=== PATIENT | male | born 1960 | race Caucasian/White ===

== ENCOUNTER 2018-03-12 13:03 | Observation (INO) | payer MEDICAID, OTHER ==
--- OUTSIDE RECORDS SUMMARY | 2018-03-12 13:18 | XMS REPORT ---
:1960 External Reference #:[id number] Author Organization [facility] Address [address] [place] [address] Phone [phone] Care Team Providers Name Role Phone Mika Dawson MD Care Team Information Director Of Nursing Unavailable Mika Dawson MD Primary Care Physician Unavailable Payers Type Date Identification Numbers Payment Provider Subscriber Medicaid Effective: Policy Number: [id number] Medicaid [place] Francisco Moreno 2018 PayID: [id number] [address] [place] [address] Problems Description No Information Family History Date Family Member(s) Problem(s) Comments Mother due to Lung Cancer () First Sister due to Lung Cancer () Social History Type Date Description Comments Smoking Heavy tobacco smoker (more than 10 cigarettes/day) Allergies, Adverse Reactions, Alerts Date Description Reaction Status Severity Comments 02/20/2018 NKDA active Medications Medication Date Status Form Strength Qnty SIG Indications Ordering Provider No Active 02/20/2018 Active Unknown Medications Vital Signs Date Vital Result Comment 02/20/2018 BP Systolic 124 mmHg BP Diastolic 88 mmHg Heart Rate 74 /min Body Temperature 99.0 F Respiratory Rate 18 /min Height 70 inches 5'10" Weight 143.00 lb BMI (Body Mass Index) 20.5 kg/m2 Results Description No Information Procedures Description No Information Plan of Care 02/20/2018 - Mika Dawson MDZ00.00 Encntr for general adult medical exam w/o abnormal findingsNew Labs:SagafdnlvP65.0 Bilateral primary osteoarthritis of hipAllNew Medication:No Active MedicationsComments:~B_~U_ Medication Management~b_~u_ Patient Understands medications he's taking? Yes No Are there Barriers to Adherence? Yes No Has the patient been asked about herbal supplements and therapies, and OTC meds? Yes No
[2018-03-12] MEDS ORDERED: Thiamine IV 100 MG, Folic Acid IV* 1 MG, Multiple Vitamin IV ADULT* 10 ML in NS 0.9% 10... IV ONE (13:29)
[2018-03-12] MEDS ORDERED: LORazepam INJ* 2 MG/ML 1 ML VIAL IV ONE (13:29)
[2018-03-12] MEDS ORDERED: NS 0.9% 1000 ML* 1,000 ML IV ONE (13:29)
[2018-03-12 14:03] LABS: ABS Basophils 0 10^3/ul (0-0.2); ABS Eosinophils 0.1 10^3/ul (0-0.6); ABS Lymphocytes 1.2 10^3/ul (1.0-4.8); ABS Monocytes 0.6 10^3/ul (0-0.8); ABS Neutrophils 2.6 10^3/ul (1.5-7.7); ABS Nucleated RBC 0 10^3/ul; Eosinophil % 1.2 % (0-6); Hematocrit 46 % (42-52); Hemoglobin 16.3 g/dl (14.0-18.0); Lymphocyte % 26.5 % (25-47); Mean Corpuscular HGB Conc 35 g/dl (31-36); Mean Corpuscular Hemoglobin 34 pg (27-31); Mean Corpuscular Volume 96 fL (80-94); Mean Platelet Volume 7.9 um3 (7.4-10.4); Nucleated Red Blood Cells % 0.2; Platelet Count 132 10^3/ul (150-450); Red Blood Count 4.83 10^6/ul (4.00-5.40); Red Cell Distribution Width 13 % (10.5-15); White Blood Count 4.4 10^3/ul (3.5-10.8)
[2018-03-12 14:24] LABS: EGFR Non-African American 105.3 (>60)
--- NOTE | 2018-03-12 15:19 | ED ---
Substance Abuse/Use - HPI Summary HPI Summary: The pt is a 57 y/o male presenting [facility] the [facility] c/o nausea and vomiting for the last 1 week. He notes tremors but denies a seizure or CP. He consumes 6 bottles of beer daily and the last time he did that was yesterday night. He has a PMHx of COPD and RA. This is scribe Antoinette Mills documenting for attending Dr. Dennis MD. - History Of Current Complaint Chief Complaint: EDGeneral Stated Complaint: VOMITING Time Seen by Provider: 03/12/18 13:25 Hx Obtained From: Patient, Family/Seaming Inspector Onset/Duration of Drug/ETOH Abuse: Weeks - 1 week Ingestion History: Type/Name Of Drug - 6 bottles of beer, Approximate Time Of Ingestion - 1 night ago Timing Of Abuse: Daily Character: Anxious Associated Signs And Symptoms: Negative - Seizures, Tremulous, Nausea, Vomiting - Allergies/Home Medications Allergies/Adverse Reactions: Allergies Allergy/AdvReac Type Severity Reaction Status Date / Time No Known Allergies Allergy Verified 03/12/18 13:13 Home Medications: Home Medications NK [No Home Medications Reported] 03/12/18 [History Confirmed 03/12/18] PMH/Surg Hx/FS Hx/Imm Hx Respiratory History: Reports: Hx Chronic Obstructive Pulmonary Disease (COPD), Other Respiratory Problems/Disorders Musculoskeletal History: Reports: Hx Rheumatoid Arthritis - Surgical History Surgery Procedure, Year, and Place: hernia repair/ Infectious Disease History: No Infectious Disease History: Denies: Traveled Outside the [place] in Last 30 Days - Family History Known Family History: Positive: Other - [place] - Social History Occupation: Employed Full-time Lives: With Family Alcohol Use: Daily Alcohol Amount: 6 bottles of beer a day Substance Use Type: Reports: None Substance Use Comment - Amount & Last Used: says he quit a week ago Hx Tobacco Use: Yes Smoking Status (MU): Heavy Every Day Tobacco Smoker Review of Systems Negative: Chest Pain Positive: Vomiting, Nausea Neurological: Negative - Seizure, Other - Positive: Tremors All Other Systems Reviewed And Are Negative: Yes Physical Exam - Summary Physical Exam Summary: VITAL SIGNS: Reviewed. GENERAL: Patient is a well-developed and nourished, anxious male who is sitting up in the stretcher. Patient is not in any acute respiratory distress. HEAD AND FACE: No signs of trauma. No ecchymosis, hematomas or skull depressions. No sinus tenderness. EYES: PERRLA, EOMI x 2, No injected conjunctiva, no nystagmus. EARS: Hearing grossly intact. Ear canals and tympanic membranes are within normal limits. MOUTH: Oropharynx within normal limits. NECK: Supple, trachea is midline, no adenopathy, no JVD, no carotid bruit, no c- spine tenderness, neck with full ROM. CHEST: Symmetric, no tenderness at palpation LUNGS: Clear to auscultation bilaterally. No wheezing or crackles. CVS: Regular rate and rhythm, S1 and S2 present, no murmurs or gallops appreciated. ABDOMEN: Soft, non-tender. No signs of distention. No rebound no guarding, and no masses palpated. Bowel sounds are normal. EXTREMITIES: FROM in all major joints, no edema, no cyanosis or clubbing. NEURO: Alert and oriented x 3. No acute neurological deficits. Speech is normal and follows commands. SKIN: Dry and warm Triage Information Reviewed: Yes Vital Signs On Initial Exam: Initial Vitals Temp Pulse Resp BP Pulse Ox 99 F 107 18 150/106 96 03/12/18 13:10 03/12/18 13:10 03/12/18 13:10 03/12/18 13:10 03/12/18 13:10 Vital Signs Reviewed: Yes Diagnostics - Vital Signs Vital Signs Temp Pulse Resp BP Pulse Ox 03/12/18 15:00 20 03/12/18 14:41 17 137/110 03/12/18 14:10 85 16 152/99 98 03/12/18 14:00 100 20 98 03/12/18 13:41 19 146/101 03/12/18 13:38 18 03/12/18 13:12 108 23 145/114 96 03/12/18 13:10 99 F 107 19 150/106 96 - Laboratory Lab Results: Lab Results 03/12/18 03/12/18 Range/Units 13:45 13:45 WBC 4.4 (3.5-10.8) 10^3/ul RBC 4.83 (4.00-5.40) 10^6/ul Hgb 16.3 (14.0-18.0) g/dl Hct 46 (42-52) % MCV 96 H (80-94) fL MCH 34 H (27-31) pg MCHC 35 (31-36) g/dl RDW 13 (10.5-15) % Plt Count 132 L (150-450) 10^3/ul MPV 7.9 (7.4-10.4) um3 Neut % (Auto) 58.7 (38-83) % Lymph % (Auto) 26.5 (25-47) % [place] % (Auto) 12.6 H (0-7) % Eos % (Auto) 1.2 (0-6) % Baso % (Auto) 1.0 (0-2) % Absolute Neuts (auto) 2.6 (1.5-7.7) 10^3/ul Absolute Lymphs (auto) 1.2 (1.0-4.8) 10^3/ul Absolute Monos (auto) 0.6 (0-0.8) 10^3/ul Absolute Eos (auto) 0.1 (0-0.6) 10^3/ul Absolute Basos (auto) 0 (0-0.2) 10^3/ul Absolute Nucleated RBC 0 10^3/ul Nucleated RBC % 0.2 Sodium 138 (135-145) mmol/L Potassium 4.5 (3.5-5.0) mmol/L Chloride 101 (101-111) mmol/L Carbon Dioxide 24 (22-32) mmol/L Anion Gap 13 H (2-11) mmol/L BUN 8 (6-24) mg/dL Creatinine 0.76 (0.67-1.17) mg/dL Est GFR ( Amer) 127.5 (>60) Est GFR (Non-Af Amer) 105.3 (>60) BUN/Creatinine Ratio 10.5 (8-20) Glucose 90 (70-100) mg/dL Calcium 9.4 (8.6-10.3) mg/dL Total Bilirubin 1.60 H (0.2-1.0) mg/dL AST 301 H (13-39) U/L ALT 189 H (7-52) U/L Alkaline Phosphatase 114 H (34-104) U/L Total Protein 7.5 (6.4-8.9) g/dL Albumin 4.4 (3.2-5.2) g/dL Globulin 3.1 (2-4) g/dL Albumin/Globulin Ratio 1.4 (1-3) TSH 2.37 (0.34-5.60) mcIU/mL Salicylates < 2.50 (<30) mg/dL Acetaminophen < 15 mcg/mL Serum Alcohol 121 H (<10) mg/dL Result Diagrams: 03/13/18 07:20 03/13/18 07:20 Lab Statement: Any lab studies that have been ordered have been reviewed, and results considered in the medical decision making process. Course/Dx - Course Assessment/Plan: This patient is a 49-year-old male who presents to the emergency department with a chief complaint of having anxiety, tremors, not feeling well. The patient reports that he is an alcoholic and he usually drinks about six pack every night. During the physical exam the patient is anxious, tachycardic and hypertensive. I placed the patient in a quality assurance monitor body, the ordered IV access, IV fluids, banana bag and Ativan. Blood test results without any significant abnormality except for increase AST and ALTs as well as total bilirubin. Alcohol level is 121. It seems that the patient is having alcohol withdrawal because now the patient is having palpitations tachycardia the patient is diaphoretic and his with a lot of tremors. Therefore I gave her another dose of Ativan and the patients symptoms are improving. I discussed the case with Dr. Webster from the hospitalist services for accepted the patient for admission. The patient is hemodynamically stable alert and oriented 3. - Diagnoses Provider Diagnoses: Alcohol withdrawal - Physician Notifications Discussed Care Of Patient With: Ayad Webster - Hospitalist Time Discussed With Above Provider: 18:15 Instructed by Provider To: Admit As Inpatient - Dr. Webster agreed to admit the pt. Discharge - Sign-Out/Discharge Documenting (check all that apply): Patient Departure - Discharge Plan Condition: Stable Disposition: ADMITTED TO [facility] - Billing Disposition and Condition Condition: STABLE Disposition: Admitted to [facility] Attestation Statement Scribe Attestation: This is dami Mills documenting for attending Dr. Dennis MD. User Type: Provider with Scribe Provider Attestation: The documentation recorded by the scribe accurately reflects the service I personally performed and the decisions made by me.
[2018-03-12 17:28] LABS: Urine Appearance Clear; Urine Blood Negative (Negative); Urine Color Yellow; Urine Ketones Negative (Negative); Urine Protein Negative (Negative); Urine Specific Gravity 1.014 (1.010-1.030); Urine Urobilinogen Negative (Negative)
[2018-03-12] MEDS ORDERED: Ondansetron INJ* 2 MG/ML VIAL IV ONE (18:08)
[2018-03-12] MEDS ORDERED: LORazepam INJ* 2 MG/ML 1 ML VIAL IV PUSH ONE (18:28)
[2018-03-12] MEDS ORDERED: Acetaminophen TAB* 325 MG PO PRN (18:48)
[2018-03-12] MEDS ORDERED: Ondansetron INJ* 2 MG/ML VIAL IV PRN (18:48)
[2018-03-12] MEDS ORDERED: Albuterol 2.5 MG/3 ML NEB.SOL* (0.083%) INH PRN (18:54)
[2018-03-12] MEDS ORDERED: LORazepam INJ* 2 MG/ML 1 ML VIAL IV PUSH SCH (19:00)
[2018-03-12 19:03] LABS: INR 0.75 (0.77-1.02)
--- NOTE | 2018-03-12 19:46 | RAD ---
Indication: Alcohol abuse. Elevated LFTs. Comparison: No relevant prior exams available on the [facility] PACS for comparison. Technique: RIGHT upper quadrant ultrasound. Report: Appropriate direction flow documented in the portal and hepatic veins. 17.3 cm liver is increased in echogenicity. Negative for focal hepatic lesions. Negative for intrahepatic biliary dilatation. 3.7 mm common bile duct. Incompletely distended gallbladder likely accounts for borderline prominence of the gallbladder wall measuring 3.4 mm. No visualized cholelithiasis or pericholecystic fluid. Negative for sonographic Bryson's sign. The pancreas is largely obscured due to bowel gas and fatty infiltration of the liver with the visualized pancreas unremarkable. No peripancreatic fluid evident. Negative for ascites. 10.8 cm RIGHT kidney is unremarkable. IMPRESSION: #. Hepatosteatosis. No conspicuous focal hepatic lesions evident. #. Incompletely distended gallbladder limiting assessment without gross abnormality. Negative for biliary dilatation. #. Limited conspicuity of the pancreas without gross abnormality. #. Negative for ascites.
--- NOTE | 2018-03-12 20:45 | HP ---
CC: Dr. Dawson * HISTORY AND PHYSICAL: DATE OF ADMISSION: 03/12/18 PRIMARY CARE PROVIDER: Dr. Dawson. ATTENDING PHYSICIAN WHILE IN THE HOSPITAL: Keith Peace MD * (report dictated by Ravinder Thomson NP) CHIEF COMPLAINT: 1. Tremors. 2. Sweating. 3. Dry heaves. HISTORY OF PRESENT ILLNESS: Mr. Moreno is a 57-year-old male patient. He has a history of COPD, not on any medications currently. He has a history of EtOH abuse. He has a history of tobacco abuse. He is presenting to our emergency department today stating that he was at work today and apparently he was having episodes of dry heaving, nausea, and vomiting. He was shaking. He was sweating. He states his last drink was last night around 8 o'clock and he states he just started having these increasing tremors. He has had a tremor, he said in the left hand. For the last few days, this is much worse. He states that he has not been vomiting up any blood or coughing out emesis. He does admit to having some epigastric discomfort, but he states that he was concerned because he could not keep anything down. The tremor was not getting any better. He came into the ED. It was noted that he was diaphoretic. He was tremulous. He was tachycardic. He was hypertensive. He was acutely withdrawing from alcohol. So, we were asked to evaluate for admission. PAST MEDICAL HISTORY: Significant for: 1. EtOH abuse. 2. Tobacco abuse. 3. COPD. PAST SURGICAL HISTORY: He has had hernia repair x2. HOME MEDICATIONS: He is denying taking any current medications. ALLERGIES TO MEDICATIONS: Include no known drug allergies. FAMILY HISTORY: Mother had a history of lung cancer. Father of a work- related accident. SOCIAL HISTORY: He admits to drinking at least a 6 pack a day. He does smoke about a pack a day. He does not wish to appoint a healthcare decision maker at this point. REVIEW OF SYSTEMS: There was no documented fever. He is denying having any significant weight change. There was no ear discharge. He is denying having any rhinorrhea. There is no sore throat. There is no thyroid enlargement. Again, he denied having any chest pain. There was no orthopnea. No nocturnal dyspnea. There is epigastric discomfort. There is dry heaves and vomiting. No dysuria, no frequency. No seizure, no loss of consciousness. No pruritus and no skin ulcerations. Review of 14 systems was completed, all others negative. PHYSICAL EXAMINATION GENERAL: At this time, Mr. Moreno is a 57-year-old male patient. He is sitting in the ED stretcher. He is chronically ill appearing. He appears to be older than stated age. He is cachectic and he is tremulous. VITAL SIGNS: Blood pressure 158/100; pulse 109; respirations 20; O2 saturations , he is on 2 L, 98%; temperature 99. HEENT: Head: Atraumatic and normocephalic. Eyes: EOMs are intact. Sclerae anicteric and not pale. Throat: Oral mucosa appears to be dry. No oropharyngeal erythema. NECK: Supple. LUNGS: Clear to auscultation. No wheezes, rales, or rhonchi. HEART: Sounds S1, S2. It is tachycardic. ABDOMEN: Soft. It was flat, nontender. Bowel sounds present. EXTREMITIES: Pulses were 2+ throughout. He is moving all 4 extremities with 5/ 5 strength. He is tremulous. NEUROLOGICAL: He is awake. He is alert. He is oriented x3. His speech was clear. There is obvious tremor noted to his upper extremities and lower extremities. He had no facial drooping. He had no gross focal deficits. SKIN: Intact. DIAGNOSTIC STUDIES/LAB DATA: Labs today, WBC of 4.4, RBC of 4.83, hemoglobin 16.3, hematocrit 46, platelet count 132,000. Sodium is 138, potassium of 4.5, chloride of 101, bicarb was 24, BUN 8, creatinine of 0.76, glucose 90. Calcium 9.4. Total bili 1.6, AST was 301, ALT 189, alk phos 114. TSH of 2.37. Urine obtained negative. Toxicology was positive for cannabis and alcohol level was 121. Old medical records were reviewed. ASSESSMENT AND PLAN: Mr. Moreno is a 57-year-old male patient with a significant history for alcoholism and tobacco abuse coming in to the ED today with complaints of nausea and vomiting for the last week, noted tremors. He presented to the ED. He was noted to be tremulous, diaphoretic, tachycardic, hypertensive. There was concern for withdrawal. We were asked to evaluate for admission. He will be admitted under inpatient status for: 1. Ethanol abuse, now complicated by withdrawal. At this point, the patient will be started on an Ativan taper. He will also be put on a WAM protocol. He has received a banana bag here in the ED. He will continue thiamine and will continue folic acid. We will also order social work evaluation. I have put him on a PPI given the epigastric pain. This is probably from alcoholic gastritis and we will continue to follow him closely. 2. Alcoholic hepatitis. He has mild alcoholic hepatitis. His LFTs are a little elevated. His bili is up. I do not have his INRs to help me evaluate his synthetic function. His platelets were a little low. He is macrocytic. I will check an ultrasound of the liver and will follow his LFTs. Should they continue to elevate, consider getting GI involved. 3. Chronic obstructive pulmonary disease. I have ordered p.r.n. albuterol. 4. DVT prophylaxis. Heparin subcu has been ordered. 5. Code status. Full code. 6. Fluids, electrolytes, and nutrition. He can have a regular diet. TIME SPENT: On the admission was approximately 60 minutes, greater than half the time was spent [id number] with the patient obtaining my history and physical; other half time was spent going over the plan of care with the patient and implementing plan of care. I did discuss the plan of care with my attending, Dr. Peace; he is in agreement. RAVINDER THOMSON NP [id number]/[facility] #: [id number] JAZMYN
[2018-03-12] MEDS: LORazepam INJ* 2 MG/ML 1 ML VIAL IV SCH (21:20)
[2018-03-12] MEDS: Nicotine PATCH 21 MG/24 HR* PATCH TRANSDERM SCH (21:20)
[2018-03-12] MEDS: Nicotine Patch Removal NOTE FOLLOW UP SCH (21:22)
[2018-03-12] MEDS: Heparin VIAL(*) 5000 UNITS/ML VIAL (FIVE THOUSAND) SUBCUT SCH (21:22)
[2018-03-13] MEDS: LORazepam INJ* 2 MG/ML 1 ML VIAL IV SCH (03:01)
[2018-03-13] MEDS: Heparin VIAL(*) 5000 UNITS/ML VIAL (FIVE THOUSAND) SUBCUT SCH ×3 (05:13→21:57)
[2018-03-13] MEDS: Omeprazole CAP* 20 MG PO SCH (05:17)
[2018-03-13] MEDS: NS 0.9% 1000 ML* 1,000 ML IV SCH ×2 (05:17→13:32)
[2018-03-13] MEDS: Thiamine TAB* 100 MG TAB PO SCH (07:35)
[2018-03-13] MEDS: Folic Acid TAB* 1 MG PO SCH (07:35)
[2018-03-13] MEDS: Multivitamins/Minerals TAB PO SCH (07:35)
[2018-03-13 08:01] LABS: Hematocrit 41 % (42-52); Hemoglobin 14.3 g/dl (14.0-18.0); Mean Corpuscular HGB Conc 35 g/dl (31-36); Mean Corpuscular Hemoglobin 34 pg (27-31); Mean Corpuscular Volume 97 fL (80-94); Red Blood Count 4.26 10^6/ul (4.00-5.40); Red Cell Distribution Width 13 % (10.5-15)
[2018-03-13 08:08] LABS: EGFR Non-African American 135.8 (>60)
[2018-03-13 08:36] LABS: ABS Basophils 0 10^3/ul (0-0.2); ABS Eosinophils 0.1 10^3/ul (0-0.6); ABS Lymphocytes 1.1 10^3/ul (1.0-4.8); ABS Monocytes 0.4 10^3/ul (0-0.8); ABS Neutrophils 1.4 10^3/ul (1.5-7.7); ABS Nucleated RBC 0 10^3/ul; Eosinophil % 4.2 % (0-6); Lymphocyte % 36.6 % (25-47); Mean Platelet Volume 8.5 um3 (7.4-10.4); Nucleated Red Blood Cells % 0.1; Platelet Count 91 10^3/ul (150-450)
[2018-03-13] MEDS: Nicotine PATCH 21 MG/24 HR* PATCH TRANSDERM SCH (08:57)
[2018-03-13] MEDS ORDERED: LORazepam INJ* 2 MG/ML 1 ML VIAL IV PUSH SCH (10:00)
[2018-03-13 10:01] LABS: INR 0.79 (0.77-1.02)
--- NOTE | 2018-03-13 14:52 | PN ---
Subjective Date of Service: 03/13/18 Interval History: Pt seen and examined. Meds and labs reviewed. CC: ETOH WD ROS: Denied PRIEST/dizziness, F/C, N/V, CP, SOB, increased cough, sputum production , abd pain, diarrhea, constipation, dysuria, myalgias, arthralgias, throat pain , and new skin lesions. The rest of the 14 point ROS are unremarkable. PHYSICAL EXAM: GEN APPEARANCE: Awake, not in acute distress HEENT: NC/AT, PERRLA, moist oral mucosa, (-) throat erythema NECK: Soft, supple, (-) cervical LAD, (-)JVD HEART: S1S2 WNL, RRR, No MRG CHEST: CTA, BL, GAE, No W/R/R ABD: Soft, ND/NT, NABS 4x Q EXT: No C/C/E, mild upper extremity tremors while eating breakfast SKIN: Warm to touch PSYCH: No active psychosis, hallucinations, depression, SI/HI Objective Active Medications: Acetaminophen (Tylenol Tab*) 650 mg PO Q4H PRN PRN Reason: PAIN Albuterol (Ventolin 2.5 Mg/3 Ml Neb.Ada*) 2.5 mg INH Q2H PRN PRN Reason: SOB/WHEEZING Folic Acid (Folvite Tab*) 1 mg PO DAILY [facility] Last Admin: 03/13/18 07:35 Dose: Not Given Heparin Sodium (Porcine) (Heparin Vial(*)) 5,000 units SUBCUT Q8HR [facility] Last Admin: 03/13/18 13:32 Dose: 5,000 units Sodium Chloride (Ns 0.9% 1000 Ml*) 1,000 mls @ 125 mls/hr IV PER RATE [facility] Last Admin: 03/13/18 13:32 Dose: 125 mls/hr Lorazepam (Ativan Inj*) 0 - 3 mg IV PUSH .PER [facility] PROTOCOL [facility]; Protocol Multivitamins/Minerals (Theragran/Minerals Tab*) 1 tab PO DAILY [facility] Last Admin: 03/13/18 07:35 Dose: Not Given Nicotine (Nicotine Patch 21 Mg/24 Hr*) 1 patch TRANSDERM DAILY [facility] Last Admin: 03/13/18 08:57 Dose: 1 patch Omeprazole (Prilosec Cap*) 20 mg PO 0600 [facility] Last Admin: 03/13/18 05:17 Dose: Not Given Ondansetron HCl (Zofran Inj*) 4 mg IV Q6H PRN PRN Reason: NAUSEA Pharmacy Profile Note (Nicotine Patch Removal Note*) 1 note FOLLOW UP 2100 [facility] Last Admin: 03/12/18 21:22 Dose: Not Given Thiamine HCl (Vitamin B-1 Tab*) 100 mg PO DAILY [facility] Last Admin: 03/13/18 07:35 Dose: Not Given Vital Signs - 8 hr 03/13/18 03/13/18 03/13/18 07:00 07:36 09:50 Temperature 98.4 F 98.5 F Pulse Rate 76 73 Respiratory 18 20 18 Rate Blood Pressure 145/90 140/92 (mmHg) O2 Sat by Pulse 97 98 Oximetry 03/13/18 03/13/18 03/13/18 10:59 11:00 13:20 Temperature 99.1 F 98.2 F Pulse Rate 71 73 Respiratory 18 16 20 Rate Blood Pressure 145/92 137/88 (mmHg) O2 Sat by Pulse 98 98 Oximetry Oxygen Devices in Use Now: Nasal Cannula Result Diagrams: 03/13/18 07:20 03/13/18 07:20 Additional Lab and Data: Lab Results 03/12/18 03/12/18 Range/Units 13:45 13:45 WBC 4.4 (3.5-10.8) 10^3/ul RBC 4.83 (4.00-5.40) 10^6/ul Hgb 16.3 (14.0-18.0) g/dl Hct 46 (42-52) % MCV 96 H (80-94) fL MCH 34 H (27-31) pg MCHC 35 (31-36) g/dl RDW 13 (10.5-15) % Plt Count 132 L (150-450) 10^3/ul MPV 7.9 (7.4-10.4) um3 Neut % (Auto) 58.7 (38-83) % Lymph % (Auto) 26.5 (25-47) % [place] % (Auto) 12.6 H (0-7) % Eos % (Auto) 1.2 (0-6) % Baso % (Auto) 1.0 (0-2) % Absolute Neuts (auto) 2.6 (1.5-7.7) 10^3/ul Absolute Lymphs (auto) 1.2 (1.0-4.8) 10^3/ul Absolute Monos (auto) 0.6 (0-0.8) 10^3/ul Absolute Eos (auto) 0.1 (0-0.6) 10^3/ul Absolute Basos (auto) 0 (0-0.2) 10^3/ul Absolute Nucleated RBC 0 10^3/ul Nucleated RBC % 0.2 Sodium 138 (135-145) mmol/L Potassium 4.5 (3.5-5.0) mmol/L Chloride 101 (101-111) mmol/L Carbon Dioxide 24 (22-32) mmol/L Anion Gap 13 H (2-11) mmol/L BUN 8 (6-24) mg/dL Creatinine 0.76 (0.67-1.17) mg/dL Est GFR ( Amer) 127.5 (>60) Est GFR (Non-Af Amer) 105.3 (>60) BUN/Creatinine Ratio 10.5 (8-20) Glucose 90 (70-100) mg/dL Calcium 9.4 (8.6-10.3) mg/dL Total Bilirubin 1.60 H (0.2-1.0) mg/dL AST 301 H (13-39) U/L ALT 189 H (7-52) U/L Alkaline Phosphatase 114 H (34-104) U/L Total Protein 7.5 (6.4-8.9) g/dL Albumin 4.4 (3.2-5.2) g/dL Globulin 3.1 (2-4) g/dL Albumin/Globulin Ratio 1.4 (1-3) TSH 2.37 (0.34-5.60) mcIU/mL Salicylates < 2.50 (<30) mg/dL Acetaminophen < 15 mcg/mL Serum Alcohol 121 H (<10) mg/dL Assess/Plan/Problems-Billing Assessment: - Patient Problems (1) Alcohol withdrawal Current Visit: Yes Status: Acute Code(s): F10.239 - ALCOHOL DEPENDENCE WITH WITHDRAWAL, UNSPECIFIED SNOMED Code(s): 909012593 Comment: #Alcohol abuse and withdrawal: -Will D/C tapering dose of scheduled BZD and will only give pending WAM scores; RN mentioned has not needed PRN BZDs since admission -Advised life-style modifications -Continue Thiamine (2) Alcoholic hepatitis Current Visit: Yes Status: Acute Code(s): K70.10 - ALCOHOLIC HEPATITIS WITHOUT ASCITES SNOMED Code(s): 277414851 Comment: -Improving LFTs except for total bilirubin likely due to longer half life -Continue to encourage PO intake (3) COPD (chronic obstructive pulmonary disease) Current Visit: Yes Status: Acute Code(s): J44.9 - CHRONIC OBSTRUCTIVE PULMONARY DISEASE, UNSPECIFIED SNOMED Code(s): 79001218 Comment: -Not in acute exacerbation -Continue PRN Albuterol (4) GERD (gastroesophageal reflux disease) Current Visit: Yes Status: Acute Code(s): K21.9 - GASTRO-ESOPHAGEAL REFLUX DISEASE WITHOUT ESOPHAGITIS SNOMED Code(s): 287951469 Comment: -Continue Omeprazole (5) DVT prophylaxis Current Visit: Yes Status: Acute Code(s): QTI2952 - SNOMED Code(s): 605613193 Comment: -Continue Heparin SQ Status and Disposition: -For possible D/C in 1-2 days
[2018-03-13] MEDS: Nicotine Patch Removal NOTE FOLLOW UP SCH (21:59)
[2018-03-14] MEDS: Heparin VIAL(*) 5000 UNITS/ML VIAL (FIVE THOUSAND) SUBCUT SCH (05:59)
[2018-03-14] MEDS: Omeprazole CAP* 20 MG PO SCH (05:59)
[2018-03-14 07:35] LABS: ABS Basophils 0 10^3/ul (0-0.2); ABS Eosinophils 0.1 10^3/ul (0-0.6); ABS Lymphocytes 1.5 10^3/ul (1.0-4.8); ABS Monocytes 0.5 10^3/ul (0-0.8); ABS Neutrophils 1.5 10^3/ul (1.5-7.7); ABS Nucleated RBC 0 10^3/ul; Eosinophil % 3.9 % (0-6); Hematocrit 44 % (42-52); Lymphocyte % 41.7 % (25-47); Mean Corpuscular HGB Conc 34 g/dl (31-36); Mean Corpuscular Hemoglobin 34 pg (27-31); Mean Corpuscular Volume 98 fL (80-94); Nucleated Red Blood Cells % 0.1; Platelet Count 94 10^3/ul (150-450); Red Blood Count 4.44 10^6/ul (4.00-5.40); Red Cell Distribution Width 13 % (10.5-15); White Blood Count 3.7 10^3/ul (3.5-10.8)
[2018-03-14 07:40] LABS: EGFR Non-African American 146.8 (>60)
[2018-03-14 08:04] VITALS: BP 134/99
[2018-03-14] MEDS ORDERED: Magnesium Sulfate IV* 2 GM in NS 0.9% 100 ML* 100 ML IV ONE (08:52)
[2018-03-14] MEDS: Thiamine TAB* 100 MG TAB PO SCH (10:10)
[2018-03-14] MEDS: Nicotine PATCH 21 MG/24 HR* PATCH TRANSDERM SCH (10:10)
[2018-03-14] MEDS: Multivitamins/Minerals TAB PO SCH (10:10)
[2018-03-14] MEDS: Folic Acid TAB* 1 MG PO SCH (10:10)
--- NOTE | 2018-03-15 02:37 | DS ---
CC: Dr. Keith Peace; Dr. Shimon Collins; Dr. Mika Dawson. * DISCHARGE SUMMARY: DATE OF ADMISSION: DATE OF DISCHARGE: 03/14/18 DISCHARGE DIAGNOSES: Are as follows: 1. Alcohol withdrawal, mild, improved. 2. Alcoholic hepatitis, improved. 3. Chronic obstructive pulmonary disease, with mild exacerbation. 4. History of gastroesophageal reflux disease. DISCHARGE MEDICATIONS: Are as follows: 1. Albuterol HFA inhaler 1 puff inhalation q.4 p.r.n. 2. Multivitamins 1 tab p.o. daily. 3. Nicotine patch 21 mg daily. 4. Prednisone rapid taper for 5 days, then stop. 5. Thiamine 100 mg p.o. daily. HISTORY OF PRESENT ILLNESS/HOSPITAL COURSE: The patient is a 57-year-old gentleman with history of COPD, tobacco, and alcohol abuse who presented to the emergency room on 03/12/18 where he was having episodes of dry heaving, nausea, and vomiting and was visibly shaking and diaphoretic and was admitted for alcohol withdrawal, which has then subsequently improved and overnight has had a WAM score of 4 and did not require any p.r.n. Ativan and/or other benzodiazepines prior to his discharge. Some of his shaking may be related to his essential tremors, instead of just withdrawal. He also sounds to have some mild alcoholic hepatitis with total bilirubin being the highest among his LFTs. All of his LFT parameters are decreasing. The patient is able to eat well and is currently not actively withdrawing. The patient was advised to follow up and recall his PCP within 3 days post discharge. He was advised that if he is having problems and/or if his symptoms worsen, to call his PCP first if these concerns can be addressed in a timely manner. If not or if he has been advised to go to the ER, to once again re- discuss with the PCP whether a [facility] followup is appropriate versus ER and to call [facility] if it is deemed to be appropriate. He was advised to stop smoking and to use his nicotine patch and to abstain from alcohol as this can eventually lead to liver failure, cirrhosis as we previously discussed. I noted during his hospitalization stay, that he has some palmar erythema with thrombo-cytopenia and although his liver ultrasound did not show evidence of cirrhosis that it is not particularly sensitive in determining cirrhosis. He could be in the early stage cirrhosis or significant steatosis proceeding to the fibrosis. I will defer with PCP to other either a [facility] or a triple face CT if the question arises. He was advised to call my questions regarding any concerns or concerns of further clarifications regarding discontinuation plans and/or prescriptions and to take his medications as prescribed. PHYSICAL EXAMINATION: Shows a most recent vital signs of records with blood pressure of 134/99, 98.7 degrees Fahrenheit, 80 beats per minute heart rate, 18 per minute respiratory rate, saturating at 98% on room air. General Appearance : The patient is awake, alert, and oriented x3, not in any acute distress. HEENT: Normocephalic, atraumatic. PERRLA. Extraocular muscles intact. Negative for icterus. Moist oral mucosa. Negative throat erythema. Neck is soft, supple, with no cervical lymphadenopathy. No JVD. Heart: S1, S2, within normal limits. Regular rate and rhythm with no murmurs, rubs or gallops. Chest is clear to auscultation bilaterally. Good air entry. No wheezing, rales or rhonchi. Abdomen is soft, nondistended, nontender. Normoactive bowel sounds 4xq. Extremities: No cyanosis, clubbing, or edema. Psychiatric: No active psychosis, depression, suicidal or homicidal ideations. Skin is warm to touch. TIME SPENT: The total time spent evaluating the patient, reviewing pertinent data and appropriate documentation is greater than 30 minutes. [id number] #: [id number] MTDD
== END 2018-03-14 13:15 | disposition home or self-care (01) ==
LOC: ED 13:03 → MED 19:54
PROVIDERS: ADMIT Hospitalist; ATTEND Student in an Organized Health Care Education/Training Program
DX: F10.239 Alcohol dependence with withdrawal, unspecified (principal); R11.2 Nausea with vomiting, unspecified; F17.210 Nicotine dependence, cigarettes, uncomplicated
CPT/HCPCS: 36415; 76705; 80048; 80053; 80076; 80307; 80320; 80329; 81003; 83735; 84100; 84443; 85025; 85060; 85610; 85730; 96365; 99285; A9270-GY; G0378; G0480; J1644; J2060; J2405; J3411; J3475

== ENCOUNTER 2021-10-28 20:43 | Inpatient (IN) ==
[2021-10-28] MEDS ORDERED: Lactated Ringers 1000 ml BAG IV.FLUID IV ONE (20:56)
[2021-10-28 21:13] LABS: ABS Basophils 0.1 10^3/ul (0-0.2); ABS Eosinophils 0.1 10^3/ul (0-0.6); ABS Lymphocytes 1.9 10^3/ul (1.0-4.8); ABS Monocytes 0.9 10^3/ul (0-0.8); ABS Neutrophils 4.4 10^3/ul (1.5-7.7); Eosinophil % 1.3 %; Hematocrit 47 % (42-52); Hemoglobin 16.6 g/dL (14.0-18.0); Lymphocyte % 26.3 %; Mean Corpuscular HGB Conc 35 g/dL (31-36); Mean Corpuscular Hemoglobin 34 pg (27-31); Mean Corpuscular Volume 96 fL (80-94); Mean Platelet Volume 6.9 fL (7.4-10.4); Nucleated Red Blood Cells % 0.1; Platelet Count 202 10^3/uL (150-450); Red Blood Count 4.92 10^6 /uL (4.18-5.48); Red Cell Distribution Width 13 % (10-15); White Blood Count 7.3 10^3/uL (3.5-10.8)
[2021-10-28 21:26] LABS: Activated Partial Thrombo Time 33.2 seconds (26.0-38.0); INR 0.88 (0.86-1.15)
[2021-10-28 21:53] LABS: Albumin 3.7 g/dL (3.2-5.2); Albumin/Globulin Ratio 1.4 (1-3); C Reactive Protein 2.97 mg/L (<8.01); Calcium 8.7 mg/dL (8.6-10.3); Globulin 2.6 g/dL (2-4); Potassium 3.7 mmol/L (3.5-5.0); Total Protein 6.3 g/dL (6.4-8.9); eGFR CKD-EPI 62.7 (>60)
[2021-10-28 22:43] LABS: High Sensitivity Troponin 1 Hr 48 pg/mL (<20)
[2021-10-28 23:04] LABS: Urine Appearance Clear; Urine Bilirubin Negative (Negative); Urine Blood Negative (Negative); Urine Color Straw; Urine Glucose Negative (Negative); Urine Ketones Negative (Negative); Urine Nitrite Negative (Negative); Urine Protein Negative (Negative); Urine Specific Gravity 1.004 (1.002-1.030); Urine Urobilinogen Negative (Negative)
[2021-10-29 03:34] LABS: TSH Ultra Thyroid Stim Horm 9.93 mcIU/mL (0.34-5.60)
[2021-10-29 03:36] LABS: Free T4 0.76 ng/dL (0.61-1.12)
[2021-10-29 03:44] LABS: Urine Benzodiazepine Screen None Detected (None Detect); Urine Cannabinoids Screen Presumptive Positive (None Detect); Urine Opiates Screen Presumptive Positive (None Detect)
[2021-10-29] MEDS ORDERED: Thiamine 100 MG/ML 2 ml VIAL (200 mg) IM ONE (04:53)
[2021-10-29] MEDS: Multivitamins/Minerals TAB PO SCH (05:10)
[2021-10-29] MEDS: Enoxaparin 40 MG/0.4 ML SYR SUBCUT SCH (05:11)
[2021-10-29 05:33] LABS: Magnesium 1.9 mg/dL (1.9-2.7)
[2021-10-29] MEDS ORDERED: BUPRENORPHINE 7.5 MCG/HR TRANSDERM SCH (09:00)
[2021-10-29] MEDS ORDERED: Nicotine GUM 2MG FRUIT FLAVOR PO PRN (10:51)
[2021-10-29] MEDS: Nicotine PATCH 21 MG/24 HR PATCH TRANSDERM SCH (11:12)
[2021-10-29] MEDS ORDERED: Lorazepam PYXIS KEY PRN (16:32)
[2021-10-29] MEDS: LORazepam 2 mg VIAL 1 ml IV PUSH SCH ×3 (17:58→22:09)
[2021-10-29] MEDS ORDERED: Albuterol 2.5mg/3 ml (0.083%) NEB.SOLN INH PRN (19:26)
[2021-10-29] MEDS ORDERED: Labetalol IV 5 MG/ML 20 ml VIAL IV PUSH ONE (20:39)
[2021-10-30] MEDS: LORazepam 2 mg VIAL 1 ml IV PUSH SCH ×11 (00:08→23:26)
[2021-10-30] MEDS: Enoxaparin 40 MG/0.4 ML SYR SUBCUT SCH (05:01)
[2021-10-30] MEDS: Nicotine PATCH 21 MG/24 HR PATCH TRANSDERM SCH (07:15)
[2021-10-30] MEDS: Multivitamins/Minerals TAB PO SCH (08:50)
[2021-10-30 15:57] LABS: Calcium 9.2 mg/dL (8.6-10.3); Magnesium 1.8 mg/dL (1.9-2.7); Potassium 4.4 mmol/L (3.5-5.0); eGFR CKD-EPI 107.5 (>60)
[2021-10-31] MEDS: Thiamine 100 MG/ML 2 ml VIAL 500 MG in NS 0.9% 250 ml 250 ML IV SCH ×4 (00:26→20:22)
[2021-10-31] MEDS: LORazepam 2 mg VIAL 1 ml IV PUSH SCH ×4 (01:32→18:08)
[2021-10-31] MEDS: Enoxaparin 40 MG/0.4 ML SYR SUBCUT SCH (05:36)
[2021-10-31] MEDS: Nicotine PATCH 21 MG/24 HR PATCH TRANSDERM SCH (08:59)
[2021-10-31] MEDS: Multivitamins/Minerals TAB PO SCH (09:00)
[2021-11-01] MEDS: Enoxaparin 40 MG/0.4 ML SYR SUBCUT SCH (04:53)
[2021-11-01] MEDS: Multivitamins/Minerals TAB PO SCH (07:55)
[2021-11-01] MEDS: Nicotine PATCH 21 MG/24 HR PATCH TRANSDERM SCH (07:55)
[2021-11-01 08:59] LABS: Calcium 9.1 mg/dL (8.6-10.3); Magnesium 1.6 mg/dL (1.9-2.7); Potassium 4.3 mmol/L (3.5-5.0); eGFR CKD-EPI 106.5 (>60)
[2021-11-02] MEDS ORDERED: Enoxaparin 40 MG/0.4 ML SYR SUBCUT SCH (09:00)
[2021-11-02] MEDS: Nicotine PATCH 21 MG/24 HR PATCH TRANSDERM SCH (10:09)
[2021-11-02] MEDS: Multivitamins/Minerals TAB PO SCH (10:09)
[2021-11-02 15:45] VITALS: BP 137/95
== END 2021-11-02 17:45 | disposition left against medical advice (07) | DRG 52 ==
LOC: ED 20:43 → SUATTDRO 10-29 04:55 → EDHOLD 10-29 04:55 → MEDTELE 10-29 08:17
PROVIDERS: ADMIT Internal Medicine; ATTEND Hospitalist

== ENCOUNTER 2022-01-14 23:40 | Inpatient (IN) ==
[2022-01-15] MEDS ORDERED: NS 0.9% 1000 ml BAG 2,000 ML IV ONE (00:19)
[2022-01-15 00:38] LABS: ABS Eosinophils 0.1 10^3/ul (0-0.6); ABS Lymphocytes 1.6 10^3/ul (1.0-4.8); ABS Monocytes 0.7 10^3/ul (0-0.8); ABS Neutrophils 3.7 10^3/ul (1.5-7.7); Eosinophil % 1.4 %; Hematocrit 47 % (42-52); Lymphocyte % 26.2 %; Mean Corpuscular HGB Conc 34 g/dL (31-36); Mean Corpuscular Hemoglobin 32 pg (27-31); Mean Corpuscular Volume 94 fL (80-94); Mean Platelet Volume 7.6 fL (7.4-10.4); Platelet Count 160 10^3/uL (150-450); Red Blood Count 5.03 10^6 /uL (4.18-5.48); Red Cell Distribution Width 13 % (10-15); White Blood Count 6.1 10^3/uL (3.5-10.8)
[2022-01-15 00:46] LABS: Activated Partial Thrombo Time 31.1 seconds (26.0-38.0); INR 0.9 (0.86-1.15)
[2022-01-15] MEDS ORDERED: Piperacillin/Tazobac ADVAN 3.375 GM in NS 0.9% 100 ml BAG 100 ML IV ONE (00:57)
[2022-01-15 01:27] LABS: Albumin 3.4 g/dL (3.2-5.2); Albumin/Globulin Ratio 1.4 (1-3); Calcium 8.3 mg/dL (8.6-10.3); Globulin 2.4 g/dL (2-4); Magnesium 1.6 mg/dL (1.9-2.7); Total Bilirubin 1.6 mg/dL (0.2-1.0); Total Protein 5.8 g/dL (6.4-8.9); eGFR CKD-EPI 85.1 (>60)
[2022-01-15 01:41] LABS: TSH Ultra Thyroid Stim Horm 5.48 mcIU/mL (0.34-5.60)
[2022-01-15 02:13] LABS: High Sensitivity Troponin 1 Hr 3 pg/mL (<20)
[2022-01-15] MEDS ORDERED: Iohexol 300 (CONTRAST) 10 ML SDV IV ONE (02:45)
[2022-01-15 03:04] LABS: Urine Appearance Clear; Urine Bilirubin Negative (Negative); Urine Blood Negative (Negative); Urine Color Yellow; Urine Glucose Negative (Negative); Urine Ketones Negative (Negative); Urine Nitrite Negative (Negative); Urine Protein Negative (Negative); Urine Specific Gravity 1.004 (1.002-1.030); Urine Urobilinogen Negative (Negative)
[2022-01-15 03:11] LABS: Urine Benzodiazepine Screen None Detected (None Detect); Urine Cannabinoids Screen Presumptive Positive (None Detect); Urine Opiates Screen Presumptive Positive (None Detect)
[2022-01-15] MEDS ORDERED: Ondansetron 4 mg VIAL 2 MG/ML 2 ml VIAL IV PRN (04:53)
[2022-01-15] MEDS ORDERED: Thiamine 100 MG/ML 2 ml VIAL (200 mg) IM ONE (04:57)
[2022-01-15] MEDS ORDERED: Magnesium Sulf 4 GM/100 ML IV 4,000 MG/100 ML BAG IVPB ONE (04:58)
[2022-01-15] MEDS ORDERED: Albuterol HFA INHALER 8 gm MDI INH PRN (05:01)
[2022-01-15] MEDS: Enoxaparin 40 MG/0.4 ML SYR SUBCUT SCH (05:32)
[2022-01-15 05:33] LABS: C Reactive Protein 4.87 mg/L (<8.01)
[2022-01-15] MEDS: Multivitamins/Minerals TAB PO SCH ×2 (05:33→08:47)
[2022-01-15] MEDS: NS 0.9% 1000 ml BAG 1,000 ML IV SCH ×2 (05:52→15:51)
[2022-01-15 07:29] LABS: ABS Eosinophils 0.1 10^3/ul (0-0.6); ABS Lymphocytes 1.7 10^3/ul (1.0-4.8); ABS Monocytes 0.5 10^3/ul (0-0.8); ABS Neutrophils 2.5 10^3/ul (1.5-7.7); Eosinophil % 1.4 %; Hematocrit 45 % (42-52); Hemoglobin 15.3 g/dL (14.0-18.0); Lymphocyte % 35.8 %; Mean Corpuscular HGB Conc 34 g/dL (31-36); Mean Corpuscular Hemoglobin 32 pg (27-31); Mean Corpuscular Volume 95 fL (80-94); Mean Platelet Volume 7.2 fL (7.4-10.4); Nucleated Red Blood Cells % 0.1; Platelet Count 153 10^3/uL (150-450); Red Blood Count 4.72 10^6 /uL (4.18-5.48); Red Cell Distribution Width 13 % (10-15); White Blood Count 4.8 10^3/uL (3.5-10.8)
[2022-01-15] MEDS: Nicotine PATCH 21 MG/24 HR PATCH TRANSDERM SCH (08:50)
[2022-01-16 06:05] LABS: Albumin 3.6 g/dL (3.2-5.2); Albumin/Globulin Ratio 1.6 (1-3); Calcium 8.5 mg/dL (8.6-10.3); Globulin 2.3 g/dL (2-4); Magnesium 1.8 mg/dL (1.9-2.7); Potassium 4.2 mmol/L (3.5-5.0); Total Bilirubin 1.6 mg/dL (0.2-1.0); Total Protein 5.9 g/dL (6.4-8.9); eGFR CKD-EPI 107.5 (>60)
[2022-01-16] MEDS: Nicotine PATCH 21 MG/24 HR PATCH TRANSDERM SCH (07:46)
[2022-01-16] MEDS: Multivitamins/Minerals TAB PO SCH (07:47)
[2022-01-16] MEDS: Enoxaparin 40 MG/0.4 ML SYR SUBCUT SCH (07:47)
[2022-01-16] MEDS ORDERED: Gadoteridol (CONTRAST) 279.3 MG/ML 10 ML IV ONE (10:42)
[2022-01-17 06:11] LABS: ABS Eosinophils 0.1 10^3/ul (0-0.6); ABS Lymphocytes 2.2 10^3/ul (1.0-4.8); ABS Monocytes 0.7 10^3/ul (0-0.8); ABS Neutrophils 2.1 10^3/ul (1.5-7.7); Eosinophil % 2.7 %; Hematocrit 52 % (42-52); Hemoglobin 17.5 g/dL (14.0-18.0); Lymphocyte % 41.7 %; Mean Corpuscular HGB Conc 34 g/dL (31-36); Mean Corpuscular Hemoglobin 32 pg (27-31); Mean Corpuscular Volume 94 fL (80-94); Mean Platelet Volume 7.8 fL (7.4-10.4); Nucleated Red Blood Cells % 0.1; Platelet Count 177 10^3/uL (150-450); Red Blood Count 5.49 10^6 /uL (4.18-5.48); Red Cell Distribution Width 13 % (10-15); White Blood Count 5.2 10^3/uL (3.5-10.8)
[2022-01-17 06:34] LABS: Calcium 9.4 mg/dL (8.6-10.3); Magnesium 1.7 mg/dL (1.9-2.7); Potassium 4.2 mmol/L (3.5-5.0); eGFR CKD-EPI 110.8 (>60)
[2022-01-17] MEDS: Enoxaparin 40 MG/0.4 ML SYR SUBCUT SCH (07:54)
[2022-01-17] MEDS: Multivitamins/Minerals TAB PO SCH (07:54)
[2022-01-17] MEDS: Nicotine PATCH 21 MG/24 HR PATCH TRANSDERM SCH (07:54)
[2022-01-17] MEDS ORDERED: Gadoteridol (CONTRAST) 279.3 MG/ML 10 ML IV ONE (16:18)
[2022-01-18 05:59] VITALS: BP 138/108
== END 2022-01-18 06:32 | disposition left against medical advice (07) | DRG 53 ==
LOC: ED 23:40 → SUATTDRO 01-15 04:53 → EDHOLD 01-15 04:53 → MEDTELE 01-15 17:17
PROVIDERS: ADMIT Internal Medicine; ATTEND Internal Medicine

== ENCOUNTER 2023-11-19 11:01 | Observation (INO) ==
[~2023-11-19 11:01] MED LIST: Metoclopramide 5 MG/ML VIAL (10 mg) IV PRN; NS 0.45% 1000 ml BAG 1,000 ML IV SCH; Naloxone 0.4 mg VIAL 0.4 mg/ml 1 ml VIAL IV PRN; Ondansetron 4 mg VIAL 2 MG/ML 2 ml VIAL IV PRN; fentaNYL 100 mcg/2 ml 50 MCG/ML VIAL ONE
[2023-11-19] MEDS ORDERED: Chlorhexidine MOUTHWASH 0.12% 15 ML UDC ONE (11:31)
[2023-11-19] MEDS ORDERED: Scopolamine 1 mg/72hr PATCH ONE (11:45)
[2023-11-19] MEDS ORDERED: ceFAZolin 2 GM in NS PREMIX 2 GM/100 ML BAG IVPB ONE (11:45)
[2023-11-19 11:57] LABS: Rapid COVID-19 Molecular Undetected (Undetected)
[2023-11-19] MEDS ORDERED: Midazolam 2 mg/2 ml VIAL 1 mg/ml 2 ml VIAL (2 mg) ONE (12:02)
[2023-11-19] MEDS: Lactated Ringers 1000 ml BAG 1,000 ML IV SCH ×2 (12:14→18:07)
[2023-11-19] MEDS: Scopolamine 1 mg/72hr PATCH TRANSDERM ONE (12:14)
[2023-11-19] MEDS ORDERED: Lidocaine 1% w EPI 1:100,000 MDV 20 ML VIAL ONE (12:57)
[2023-11-19] MEDS ORDERED: Thrombin 5,000 UNITS(BOVINE) for Ultrasound Guided Pseudoaneursym ONE (12:57)
[2023-11-19] MEDS ORDERED: Gelfoam Sponge SIZE 100 SPONGE ONE (12:58)
[2023-11-19] MEDS ORDERED: ceFAZolin VIAL VIAL ONE (12:58)
[2023-11-19] MEDS ORDERED: HYDROmorphone 0.5 MG/0.5 ML SYRINGE ONE ×2 (13:52→13:54)
[2023-11-19] MEDS ORDERED: Ondansetron 4 mg VIAL 2 MG/ML 2 ml VIAL ONE (14:33)
[2023-11-19] MEDS ORDERED: Rocuronium 50 mg VIAL 10 mg/ml 5 ml VIAL (50 mg) ONE (14:38)
[2023-11-19] MEDS ORDERED: fentaNYL 100 mcg/2 ml 50 MCG/ML VIAL ONE (15:30)
[2023-11-19] MEDS: fentaNYL 100 mcg/2 ml 50 MCG/ML VIAL IV PRN (15:32)
[2023-11-19] MEDS ORDERED: Calcium Carb (TUMS) 500 mg CHEW TAB PO PRN (15:33)
[2023-11-19] MEDS ORDERED: Ondansetron 4 mg VIAL 2 MG/ML 2 ml VIAL IV PRN (15:33)
[2023-11-19] MEDS ORDERED: Senna TAB 8.6 mg TAB PO PRN (15:33)
[2023-11-19] MEDS ORDERED: Dextran 70/Hypromellose Tears Eye Drops 15 ml BTL (for Artificials Tears) BOTH EYES PRN (15:33)
[2023-11-19] MEDS ORDERED: Phenol 1.4% Throat Spray BTL MT PRN (15:33)
[2023-11-19] MEDS ORDERED: Benzocaine/Menthol LOZ MT PRN (15:33)
[2023-11-19] MEDS ORDERED: Albuterol HFA INHALER 8 gm MDI INH PRN (15:37)
[2023-11-19] MEDS ORDERED: Meperidine 50 mg/ml SYRINGE 1 ml ONE (15:38)
[2023-11-19] MEDS ORDERED: LORazepam 2 mg VIAL 1 ml IV PUSH SCH (16:00)
[2023-11-19] MEDS: Morphine 2 MG/ML SYRINGE IV PRN (18:06)
[2023-11-19] MEDS: Thiamine 100 MG/ML 2 ml VIAL (200 mg) IM ONE ×2 (18:06→19:28)
[2023-11-19] MEDS: CMCS:FLUTICAS/UMECLI/VILANT 100-62.5-25 MDI (NF) INH SCH (20:04)
[2023-11-19] MEDS: Acetaminophen IV 1 GM/100ML 1,000 MG/100 ML BAG IV ONE (20:10)
[2023-11-19] MEDS: Buffered Lidocaine 1% SYRIN 1 ml INTRADERM ONE (20:21)
[2023-11-20] MEDS: Multivitamins/Minerals TAB PO SCH (08:11)
[2023-11-20 08:56] LABS: ABS Basophils 0.1 10^3/uL (0.0-0.1); ABS Eosinophils 0.1 10^3/uL (0.0-0.5); ABS Lymphocytes 1.9 10^3/uL (1.0-4.8); ABS Monocytes 0.7 10^3/uL (0.0-1.1); ABS Neutrophils 4.1 10^3/uL (1.5-7.6); Eosinophil % 0.8 %; Hematocrit 39.3 % (38-53); Hemoglobin 13.5 g/dL (13.2-16.3); Lymphocyte % 27.8 %; Mean Corpuscular Hemoglobin 33.6 pg (27-33); Mean Corpuscular Hgb Conc 34.4 g/dL (31-36); Mean Corpuscular Volume 97.8 fL (80-97); Mean Platelet Volume 6.9 fL (7.5-11.2); Platelet Count 170 10^3/uL (150-450); Red Blood Count 4.02 10^6/uL (4.06-5.63); Red Cell Distribution Width 13.5 % (12-17); White Blood Count 6.8 10^3/uL (3.6-10.2)
[2023-11-20] MEDS ORDERED: Multivitamins/Minerals TAB PO SCH (09:00)
[2023-11-20 09:08] LABS: INR 0.91 (0.83-1.13)
[2023-11-20 09:59] LABS: Albumin 4.1 g/dL (3.2-5.2); Albumin/Globulin Ratio 1.9 (1-3); Calcium 8.6 mg/dL (8.6-10.3); Creatinine, Serum 0.76 mg/dL (0.67-1.17); Globulin 2.2 g/dL (2-4); Potassium 4.4 mmol/L (3.5-5.0); Total Bilirubin 1.4 mg/dL (0.2-1.0); Total Protein 6.3 g/dL (6.4-8.9); eGFR CKD-EPI 100.4 (>60)
[2023-11-21 11:07] VITALS: BP 106/80
== END 2023-11-21 15:30 | disposition home or self-care (01) ==
LOC: OR 11:01 → SSU 11:01
PROVIDERS: ADMIT Physician Assistant; ATTEND Neurological Surgery